=== PATIENT | female | born 1965 | race Caucasian/White ===

== ENCOUNTER 2018-10-15 16:32 | Emergency (ER) | payer MEDICAID ==
[~2018-10-15] VITALS: Ht 165.1 cm; Wt 74.9 kg
[2018-10-15 16:35] VITALS: Ht 165.1 cm; Wt 74.9 kg
[2018-10-15] MEDS ORDERED: MECLIZINE 12.5 MG TAB PO ONE (17:00)
[2018-10-15 18:00] VITALS: BP 109/66; PULSE 67; RESP 16
--- NOTE | 2018-10-15 19:29 | ERD ---
ER Documentation Chief Complaint Chief Complaint dizziness, nausea & headache x 3 days HPI This is a 53 yo F who presents for evaluation of dizziness described as vertiginous, associated with headache, intermittent for the last three days. She denies history of trauma. She has not had speech changes, dysphagia, or weakness. She has no chest pain or shortness of breath. She has not had tinnitus ROS All systems reviewed and are negative except as per history of present illness. Medications Home Meds No Active Prescriptions or Reported Meds Allergies Allergies: Coded Allergies: No Known Allergy (Unverified , 10/15/18) PMhx/Soc History of Surgery: No Anesthesia Reaction: No Hx Neurological Disorder: No Hx Respiratory Disorders: No Hx Cardiac Disorders: No Hx Psychiatric Problems: No Hx Miscellaneous Medical Probl: No Hx Alcohol Use: No Hx Substance Use: No Hx Tobacco Use: No Smoking Status: Never smoker FmHx Family History: diabetes Physical Exam Vitals Vital Signs Date Temp Pulse Resp B/P (MAP) Pulse Ox O2 O2 Flow FiO2 Time Delivery Rate 10/15/18 67 16 109/66 99 Room Air 18:00 (80) 10/15/18 97.8 80 18 129/80 99 16:35 (96) Physical Exam Const: No acute distress Head: Atraumatic Eyes: Normal Conjunctiva ENT: Normal External Ears, Nose and Mouth. Neck: Full range of motion. No meningismus. Resp: Clear to auscultation bilaterally Cardio: Regular rate and rhythm, no murmurs Abd: Soft, non tender, non distended, no rebound or guarding. Normal bowel sounds Skin: No petechiae or rashes Back: No midline or flank tenderness Ext: No cyanosis, or edema Neur: Awake and alert. Oriented x 4. CN II-XII intact, no cerebellar ataxia, normal rapid finger movement Psych: Normal Mood and Affect Result Diagram: 10/15/18 1715 10/15/18 1715 Results 24 hrs Laboratory Tests Test 10/15/18 17:15 White Blood Count 6.2 10^3/ul Red Blood Count 4.02 10^6/ul Hemoglobin 12.3 g/dl Hematocrit 36.4 % Mean Corpuscular Volume 90.5 fl Mean Corpuscular Hemoglobin 30.6 pg Mean Corpuscular Hemoglobin Concent 33.8 g/dl Red Cell Distribution Width 14.0 % Platelet Count 245 10^3/UL Mean Platelet Volume 9.8 fl Immature Granulocytes % 0.200 % Neutrophils % 45.5 % Lymphocytes % 45.2 % Monocytes % 8.3 % Eosinophils % 0.5 % Basophils % 0.3 % Nucleated Red Blood Cells % 0.0 /100WBC Immature Granulocytes # 0.010 10^3/ul Neutrophils # 2.8 10^3/ul Lymphocytes # 2.8 10^3/ul Monocytes # 0.5 10^3/ul Eosinophils # 0.0 10^3/ul Basophils # 0.0 10^3/ul Nucleated Red Blood Cells # 0.0 10^3/ul Sodium Level 143 mmol/L Potassium Level 3.8 mmol/L Chloride Level 108 mmol/L Carbon Dioxide Level 26 mmol/L Anion Gap 9 Blood Urea Nitrogen 17 mg/dl Creatinine 0.72 mg/dl Est Glomerular Filtrat Rate mL/min > 60 mL/min Glucose Level 103 mg/dl Calcium Level 9.3 mg/dl Troponin I < 0.012 ng/ml Current Medications Medications Dose Sig/Kasey Start Time Status Last (Trade) Ordered Route PRN Stop Time Admin Dose Reason Admin Meclizine 25 mg ONCE ONCE 10/15/18 DC 10/15/18 HCl PO 17:00 10/15/18 17:13 (Antivert) 17:01 Procedures/MDM This is a 53 year old female who presents for evaluation of dizziness described as vertiginous. Her symptoms are most likely secondary to a peripheral cause given that she has no neurologic deficits, and she does not have any major risk factors for acute stroke. I did consider cystoscopy, and discussed with the patient, she had a CT brain that was negative, which is ordered for new onset headache in a patient older than 50, this was negative for any findings such as a mass. At this point I feel that the patient is stable for outpatient follow- up strict return questions were given to return for fever, neck stiffness, confusion, any neurologic symptoms, or any worsening symptoms at discharge she was in no distress. EKG: Rate/Rhythm: Normal Sinus Rhythm QRS, ST, T-waves: No changes consistent w/ acute ischemia Impression: No evidence of ischemia or arrhythmia Departure Diagnosis: Primary Impression: Dizziness Condition: Stable NILA LAU MD Oct 15, 2018 19:29
[2018-10-15] MEDS ORDERED: MECL-113 PO (19:36)
== END 2018-10-15 19:59 | disposition home or self-care (01) ==
LOC: E/R 16:32
DX: R42 Dizziness and giddiness (principal); R40.2142 Coma scale, eyes open, spontaneous, at arrival to emergency department; R40.2252 Coma scale, best verbal response, oriented, at arrival to emergency department; R40.2362 Coma scale, best motor response, obeys commands, at arrival to emergency department
CPT/HCPCS: 70450; 80048; 84484; 85025; 93005; Z7502; Z7610